=== PATIENT | female | born 1990 | race Caucasian/White ===

== ENCOUNTER → 2018-08-19 18:34 | Emergency (ER) | payer MEDICAID, OTHER ==
[~2018-08-19 18:34] MED LIST: Gabapentin CAP(*) 300 MG PO ONE; ValACYclovir (*) 1 GM TAB PO ONE; diPHENhydraMINE PO* 25 MG PO ONE
--- NOTE | 2018-08-19 21:37 | ED ---
Skin Complaint - HPI Summary HPI Summary: 28-year-old female presents with rash for the past couple days. Rash does not cross midline. Has never had this rash before. Has no medical conditions. No new soaps or products. Has not taking anything for symptoms. pain started and then develop rash. no fevers or chills. - History of Current Complaint Chief Complaint: EDRashSkinAbscess Time Seen by Provider: 08/19/18 21:21 Stated Complaint: SHINGLES PER PT Pain Intensity: 4 - Allergy/Home Medications Allergies/Adverse Reactions: Allergies Allergy/AdvReac Type Severity Reaction Status Date / Time No Known Allergies Allergy Verified 08/19/18 18:42 Home Medications: Home Medications Ibuprofen TAB* [Advil TAB*] 400 mg PO Q6H PRN 08/19/18 [History Confirmed ] PMH/Surg Hx/FS Hx/Imm Hx Endocrine/Hematology History: Denies: Hx Diabetes Cardiovascular History: Denies: Hx Hypertension Respiratory History: Denies: Hx Asthma Infectious Disease History: No Infectious Disease History: Denies: Traveled Outside the [place] in Last 30 Days - Family History Known Family History: Positive: Non-Contributory - Social History Substance Use Type: Reports: None Review of Systems Negative: Fever Negative: Chest Pain Negative: Shortness Of Breath Positive: Rash All Other Systems Reviewed And Are Negative: Yes Physical Exam Triage Information Reviewed: Yes Vital Signs On Initial Exam: Initial Vitals Temp Pulse Resp BP Pulse Ox 97.1 F 83 16 136/77 100 08/19/18 18:37 08/19/18 18:37 08/19/18 18:37 08/19/18 18:37 08/19/18 18:37 Vital Signs Reviewed: Yes Appearance: Positive: Well-Appearing Skin: Positive: Warm, Dry, Other - vesciles on erythematous base on right side of chest and arm Head/Face: Positive: Normal Head/Face Inspection Eyes: Positive: Normal, Conjunctiva Clear ENT: Positive: Normal ENT inspection, Pharynx normal, TMs normal Respiratory/Lung Sounds: Positive: Clear to Auscultation, Breath Sounds Present Cardiovascular: Positive: Normal, RRR Musculoskeletal: Positive: Normal Neurological: Positive: Normal Psychiatric: Positive: Normal Diagnostics - Vital Signs Vital Signs Temp Pulse Resp BP Pulse Ox 08/19/18 20:31 98.1 F 71 18 131/84 98 08/19/18 18:37 97.1 F 83 16 136/77 100 - Laboratory Lab Statement: Any lab studies that have been ordered have been reviewed, and results considered in the medical decision making process. Course/Dx - Course Course Of Treatment: 28-year-old female presents with rash for the past couple days. Rash does not cross midline. Has never had this rash before. Has no medical conditions. No new soaps or products. Has not taking anything for symptoms. pain started and then develop rash. no fevers or chills. on exam has a vescular rash on erythematous base. rash follows dermatome. Rash most consistent with shingles. Will start her on Valtrex. gave gabapentin for pain and hydroxyzine for itching. Patient understands agrees with plan. - Differential Diagnoses - Skin Complaint Differential Diagnoses: Cellulitis, Contact Dermatitis, Varicella Zoster - Diagnoses Provider Diagnoses: Shingles Discharge - Sign-Out/Discharge Documenting (check all that apply): Patient Departure Patient Received Moderate/Deep Sedation with Procedure: No - Discharge Plan Condition: Good Disposition: HOME Prescriptions: Gabapentin CAP(*) [Neurontin 300 CAP(*)] 300 mg PO TID #30 cap hydrOXYzine HCL TAB* [Atarax 25 MG TAB*] 25 mg PO QID PRN #12 tab PRN Reason: Itching ValACYclovir (*) [Valtrex 1 GM(*)] 1 gm PO BID #13 tab Patient Education Materials: Shingles (ED) Referrals: No Primary Care Phys,NOPCP [Primary Care Provider] - Additional Instructions: take valtrex twice a day for 7 days take hydroxyzine during the day every 6 hours, use benadryl every 6 hours for at night for itching apply calamine lotion take gabapentin 300 mg once on day 1, 300 mg twice daily on day 2, and 300 mg 3 times daily on day 3, continue three times a day as needed for pain Take tyenlol or ibuprofen every 6 hours for pain Return to ED if develop any new or worsening symptoms - Billing Disposition and Condition Condition: GOOD Disposition: Home
[2018-08-19 22:48] VITALS: BP 121/79
== END | disposition home or self-care (01) ==
LOC: ED 18:34
DX: B02.9 Zoster without complications (principal)
CPT/HCPCS: 99282; A9270-GY